=== PATIENT | female | born 1960 | race Two or more races ===

== ENCOUNTER → 2018-03-17 | Outpatient (CLI) | payer BC ==
[~2018-03-17] MED LIST: FER325T PO; MULTTAB61 PO
[2018-03-17 07:29] LABS: Urine Bacteria FEW /hpf (None Seen); Urine Blood Negative /uL (Negative); Urine Mucus FEW (None Seen); Urine Specific Gravity 1.021 (1.001-1.035); Urine WBC 6 /hpf (0 - 5)
[2018-03-17 07:31] LABS: Basophils # (auto) 0 uL; Basophils % (auto) 0.8 % (0.0-2.0); Eosinophils # (auto) 0.1 uL; Eosinophils % (auto) 2.4 % (0.0-7.0); Hematocrit 43.5 % (36.0-46.0); Hemoglobin 14.6 g/dL (12.2-16.2); Lymphocytes # (auto) 1.8 uL; Lymphocytes % (auto) 39.7 % (10.0-50.0); Mean Corpuscular Hemoglobin 28.7 pg (28.0-32.0); Mean Corpuscular Hgb Conc. 33.6 g/dL (32.0-36.0); Mean Corpuscular Volume 85.5 fL (80.0-100.0); Monocytes # (auto) 0.3 uL; Monocytes % (auto) 6.2 % (0.0-12.0); Neutrophils # (auto) 2.4 uL; Neutrophils % (auto) 50.9 % (37.0-80.0); Platelet Count (auto) 203 10^3/uL (140-450); Red Blood Cells 5.09 10^6/uL (4.0-5.20); Red Cell Distribution Width 13.4 % (11.8-14.3); White Blood Cell 4.6 10^3/uL (4.4-10.8)
[2018-03-17 08:26] LABS: Albumin 3.7 g/dL (3.4-5.0); BUN/Creatinine Ratio 20.6; Bilirubin, Total 0.4 mg/dL (0.2-1.0); Calcium 8.6 mg/dL (8.5-10.1); Potassium 3.8 mmol/L (3.5-5.1); Total Protein 7.5 g/dL (6.4-8.2)
== END | disposition home or self-care (01) ==
LOC: LAB 07:03
PROVIDERS: ATTEND Nurse Practitioner
DX: E78.5 Hyperlipidemia, unspecified (principal)
CPT/HCPCS: 36415; 80053; 80061; 81001; 82306; 83036; 84443; 85025

== ENCOUNTER 2024-04-20 13:03 | Emergency (ER) | payer BC ==
[~2024-04-20] VITALS: Ht 152.4 cm; Wt 99.0 kg
[~2024-04-20 13:03] MED LIST changes: +MULT-1018 PO; -MULTTAB61 PO
[2024-04-20] MEDS: IOHEXOL 350 MG/ML 100ML IJ ONE (13:31)
[2024-04-20 13:37] LABS: Basophils # (auto) 0 10 ^3/uL (0-0.2); Basophils % (auto) 0.6 % (0.0-2.0); Eosinophils # (auto) 0.1 10 ^3/uL (0-0.8); Eosinophils % (auto) 1.7 % (0.0-7.0); Hematocrit 44.8 % (36.0-46.0); Hemoglobin 15.5 g/dL (12.2-16.2); Lymphocytes % (auto) 40.9 % (10.0-50.0); Mean Corpuscular Hemoglobin 30.6 pg (28.0-32.0); Mean Corpuscular Hgb Conc. 34.6 g/dL (32.0-36.0); Mean Corpuscular Volume 88.2 fL (80.0-100.0); Monocytes # (auto) 0.6 10 ^3/uL (0-1.3); Neutrophils # (auto) 3.6 10 ^3/uL (1.6-8.6); Neutrophils % (auto) 48.8 % (37.0-80.0); Platelet Count (auto) 195 10^3/uL (140-450); Red Blood Cells 5.07 10^6/uL (4.0-5.20); Red Cell Distribution Width 13.7 % (11.8-14.3); White Blood Cell 7.3 10^3/uL (4.4-10.8)
[2024-04-20 13:48] LABS: INR 1.03 (0.9-1.15); Partial Thromboplastin Time 27.9 SEC (24.5-34.5); Prothrombin Time 10.9 sec (9.3-11.8)
[2024-04-20 14:17] LABS: Alanine Aminotransferase 39 U/L (7-40); Albumin 4.3 g/dL (3.2-4.8); Alkaline Phosphatase 124 U/L (46-116); Anion Gap 7 (5-15); Aspartate Aminotransferase 26 U/L (13-40); BUN/Creatinine Ratio 13.8 (10.0-20.0); Blood Urea Nitrogen 12 mg/dL (9-23); Calcium 9.5 mg/dL (8.7-10.4); Carbon Dioxide 24 mmol/L (20-30); Chloride 109 mmol/L (98-107); Glucose 102 mg/dL (74-106); Magnesium 2.4 mg/dL (1.6-2.6); Potassium 4.1 mmol/L (3.5-5.1); Sodium 140 mmol/L (136-145)
[2024-04-20 14:18] LABS: Bilirubin, Total 0.4 mg/dL (0.2-1.0); Total Protein 7.2 g/dL (5.7-8.2)
[2024-04-20] MEDS ORDERED: VALA1TAB PO (14:30)
[2024-04-20] MEDS ORDERED: DEX4T PO (14:30)
[2024-04-20] MEDS: DexAMETHasone SOD PHOS 10MG/1ML VIAL INJ IM ONE (14:40)
[2024-04-20 14:58] VITALS: BP 135/85; PULSE 70; RESP 16; TEMP 98.5; O2SAT 96
== END 2024-04-20 15:00 | disposition home or self-care (01) ==
LOC: ER 13:03
DX: G51.0 Bell's palsy (principal); R07.89 Other chest pain; Z79.899 Other long term (current) drug therapy
CPT/HCPCS: 36415; 70450; 70496; 80053; 83735; 83880; 84484; 85025; 85610; 85730; 93005; 96372; 99285; J1100; Q9967

== ENCOUNTER → 2024-05-31 | Outpatient (CLI) | payer BC ==
[~2024-05-31] MED LIST changes: +DEX4T PO; +VALA1TAB PO
[2024-05-31 06:55] LABS: Basophils # (auto) 0.1 10 ^3/uL (0-0.2); Basophils % (auto) 1.4 % (0.0-2.0); Eosinophils # (auto) 0.1 10 ^3/uL (0-0.8); Eosinophils % (auto) 1.8 % (0.0-7.0); Hematocrit 43.6 % (36.0-46.0); Lymphocytes # (auto) 2.4 10 ^3/uL (0.4-5.4); Lymphocytes % (auto) 38.4 % (10.0-50.0); Mean Corpuscular Hemoglobin 30.5 pg (28.0-32.0); Mean Corpuscular Hgb Conc. 34.5 g/dL (32.0-36.0); Mean Corpuscular Volume 88.3 fL (80.0-100.0); Monocytes # (auto) 0.4 10 ^3/uL (0-1.3); Monocytes % (auto) 6.7 % (0.0-12.0); Neutrophils # (auto) 3.3 10 ^3/uL (1.6-8.6); Neutrophils % (auto) 51.7 % (37.0-80.0); Nucleated Red Blood Cells % 0.1 %; Platelet Count (auto) 200 10^3/uL (140-450); Red Blood Cells 4.93 10^6/uL (4.0-5.20); Red Cell Distribution Width 14.5 % (11.8-14.3); White Blood Cell 6.3 10^3/uL (4.4-10.8)
[2024-05-31 06:58] LABS: Urine Bacteria FEW /hpf (None Seen); Urine Blood Negative /uL (Negative); Urine Clarity Clear (Clear); Urine Color Yellow (Yellow); Urine Protein, UAD Negative (Negative); Urine Specific Gravity 1.021 (1.001-1.035); Urine Urobilinogen Normal (Negative); Urine WBC 3 /hpf (0 - 5); Urine pH 6.5 (5.0-9.0)
[2024-05-31 07:26] LABS: Alanine Aminotransferase 37 U/L (7-40); Albumin 4.1 g/dL (3.2-4.8); Alkaline Phosphatase 114 U/L (46-116); Anion Gap 4 (5-15); Aspartate Aminotransferase 24 U/L (13-40); BUN/Creatinine Ratio 14.1 (10.0-20.0); Bilirubin, Total 0.7 mg/dL (0.2-1.0); Blood Urea Nitrogen 10 mg/dL (9-23); Calcium 9.6 mg/dL (8.7-10.4); Carbon Dioxide 28 mmol/L (20-31); Chloride 109 mmol/L (98-107); Glucose 108 mg/dL (74-106); Potassium 4.1 mmol/L (3.5-5.1); Sodium 141 mmol/L (136-145); Total Protein 6.8 g/dL (5.7-8.2)
[2024-05-31 07:51] LABS: Cholesterol 185 mg/dL (< 200); Triglycerides 169 mg/dL (< 150)
[2024-05-31 07:52] LABS: LDL Cholesterol 133 mg/dL (< 100)
[2024-05-31 07:53] LABS: HDL Cholesterol 44 mg/dL (40-59)
== END | disposition home or self-care (01) ==
LOC: LAB 06:12
DX: Z12.11 Encounter for screening for malignant neoplasm of colon (principal); I10 Essential (primary) hypertension; R73.9 Hyperglycemia, unspecified
CPT/HCPCS: 36415; 80053; 80061; 81001; 82306; 83036; 84439; 84443; 85025

== ENCOUNTER → 2024-06-23 | Outpatient (CLI) | payer BC | END | disposition home or self-care (01) | LOC: LAB 13:08 | PROVIDERS: ATTEND Student in an Organized Health Care Education/Training Program | DX: Z12.11 Encounter for screening for malignant neoplasm of colon (principal); I10 Essential (primary) hypertension; R73.9 Hyperglycemia, unspecified; E55.9 Vitamin D deficiency, unspecified | CPT/HCPCS: 82274 ==

== ENCOUNTER → 2024-07-12 | Outpatient (CLI) | payer BC ==
[2024-07-13 08:07] LABS: Complement C3 132 mg/dL (82-167); Rheumatoid Arthritis Factor 39.5 IU/mL (<14.0); Thyroid Peroxidase (TPO) Ab <9 IU/mL (0-34)
[2024-07-13 15:07] LABS: Anti-Nuclear Antibody Direct Negative (Negative); Anti-dsDNA Antibody <1 IU/mL (0-9); Antiscleroderma-70 Antibody <0.2 AI (0.0-0.9); RNP Antibody <0.2 AI (0.0-0.9); Sjogren's Anti-SS-A Antibody <0.2 AI (0.0-0.9); Sjogren's Anti-SS-B Antibody <0.2 AI (0.0-0.9); Smith Antibody <0.2 AI (0.0-0.9)
== END | disposition home or self-care (01) ==
LOC: LAB 12:29
PROVIDERS: ATTEND Student in an Organized Health Care Education/Training Program
DX: M25.50 Pain in unspecified joint (principal)
CPT/HCPCS: 36415; 84550; 86160; 86225; 86235; 86376; 86431

== ENCOUNTER → 2025-01-04 | Outpatient (CLI) | payer BC ==
[2025-01-04 11:35] LABS: Alanine Aminotransferase 37 U/L (7-40); Albumin 4.2 g/dL (3.2-4.8); Anion Gap 7 (5-15); Aspartate Aminotransferase 26 U/L (13-40); BUN/Creatinine Ratio 19.2 (10.0-20.0); Bilirubin, Total 0.3 mg/dL (0.2-1.0); Blood Urea Nitrogen 15 mg/dL (9-23); CRP High Sensitivity 0.66 mg/dL (<1.0); Calcium 9.8 mg/dL (8.7-10.4); Carbon Dioxide 28 mmol/L (20-31); Chloride 106 mmol/L (98-107); Glucose 93 mg/dL (74-106); Potassium 4.2 mmol/L (3.5-5.1); Sodium 141 mmol/L (136-145); Total Protein 6.9 g/dL (5.7-8.2)
[2025-01-04 11:36] LABS: Basophils # (auto) 0.1 10 ^3/uL (0-0.2); Basophils % (auto) 0.9 % (0.0-2.0); Eosinophils # (auto) 0.2 10 ^3/uL (0-0.8); Eosinophils % (auto) 1.7 % (0.0-7.0); Hematocrit 43.9 % (36.0-46.0); Lymphocytes # (auto) 2.9 10 ^3/uL (0.4-5.4); Lymphocytes % (auto) 32.1 % (10.0-50.0); Mean Corpuscular Hemoglobin 29.7 pg (28.0-32.0); Mean Corpuscular Hgb Conc. 34.2 g/dL (32.0-36.0); Mean Corpuscular Volume 86.9 fL (80.0-100.0); Monocytes # (auto) 0.6 10 ^3/uL (0-1.3); Monocytes % (auto) 7.2 % (0.0-12.0); Neutrophils # (auto) 5.2 10 ^3/uL (1.6-8.6); Neutrophils % (auto) 58.1 % (37.0-80.0); Nucleated Red Blood Cells % 0.4 %; Platelet Count (auto) 165 10^3/uL (140-450); Red Blood Cells 5.06 10^6/uL (4.0-5.20); Red Cell Distribution Width 13.6 % (11.8-14.3); White Blood Cell 8.9 10^3/uL (4.4-10.8)
[2025-01-04 11:37] LABS: Alkaline Phosphatase 141 U/L (46-116)
[2025-01-04 12:18] LABS: Erythrocyte Sedimentation Rate 9 mm/hr (0-20)
[2025-01-05 10:54] LABS: Hepatitis B Core Total AB Negative (Negative)
[2025-01-05 12:15] LABS: Hepatitis A Total Antibody Positive (Negative); Hepatitis B Surface Antibody Negative (Negative); Hepatitis B Surface Antigen Negative (Negative); Hepatitis C Antibody Negative (Negative)
== END | disposition home or self-care (01) ==
LOC: LAB 10:10
PROVIDERS: ATTEND Internal Medicine Rheumatology
DX: L40.50 Arthropathic psoriasis, unspecified (principal); R76.0 Raised antibody titer
CPT/HCPCS: 36415; 80053; 85025; 85652; 86141; 86704; 86706; 86708; 86803; 87340

== ENCOUNTER 2025-01-28 06:46 | Outpatient (CLI) | payer BC ==
[2025-01-28 07:07] LABS: Basophils # (auto) 0.1 10 ^3/uL (0-0.2); Basophils % (auto) 0.9 % (0.0-2.0); Eosinophils # (auto) 0.2 10 ^3/uL (0-0.8); Eosinophils % (auto) 2.8 % (0.0-7.0); Hematocrit 42.3 % (36.0-46.0); Hemoglobin 14.9 g/dL (12.2-16.2); Lymphocytes # (auto) 2.6 10 ^3/uL (0.4-5.4); Lymphocytes % (auto) 39.1 % (10.0-50.0); Mean Corpuscular Hgb Conc. 35.1 g/dL (32.0-36.0); Mean Corpuscular Volume 85.4 fL (80.0-100.0); Monocytes # (auto) 0.4 10 ^3/uL (0-1.3); Monocytes % (auto) 6.5 % (0.0-12.0); Neutrophils # (auto) 3.4 10 ^3/uL (1.6-8.6); Neutrophils % (auto) 50.7 % (37.0-80.0); Nucleated Red Blood Cells % 0.1 %; Platelet Count (auto) 183 10^3/uL (140-450); Red Blood Cells 4.96 10^6/uL (4.0-5.20); Red Cell Distribution Width 14.1 % (11.8-14.3); White Blood Cell 6.6 10^3/uL (4.4-10.8)
[2025-01-28 08:14] LABS: Alanine Aminotransferase 36 U/L (7-40); Anion Gap 9 (5-15); BUN/Creatinine Ratio 15.9 (10.0-20.0); Blood Urea Nitrogen 11 mg/dL (9-23); CRP High Sensitivity 0.75 mg/dL (<1.0); Calcium 9.9 mg/dL (8.7-10.4); Carbon Dioxide 26 mmol/L (20-31); Glucose 92 mg/dL (74-106); Potassium 4.1 mmol/L (3.5-5.1); Sodium 144 mmol/L (136-145); Total Protein 6.8 g/dL (5.7-8.2); Triglycerides 139 mg/dL (< 150)
[2025-01-28 08:15] LABS: Albumin 4.1 g/dL (3.2-4.8); Aspartate Aminotransferase 27 U/L (<34); Bilirubin, Total 0.6 mg/dL (0.2-1.0); Cholesterol 186 mg/dL (< 200); HDL Cholesterol 42 mg/dL (40-59)
[2025-01-28 08:18] LABS: Erythrocyte Sedimentation Rate 8 mm/hr (0-20)
[2025-01-28 08:19] LABS: Alkaline Phosphatase 120 U/L (46-116); Chloride 109 mmol/L (98-107); LDL Cholesterol 141 mg/dL (< 100)
== END 2025-01-28 17:00 | disposition home or self-care (01) ==
LOC: LAB 06:46
PROVIDERS: ATTEND Student in an Organized Health Care Education/Training Program
DX: I10 Essential (primary) hypertension (principal); E55.9 Vitamin D deficiency, unspecified; R73.9 Hyperglycemia, unspecified; L40.50 Arthropathic psoriasis, unspecified; Z79.899 Other long term (current) drug therapy
CPT/HCPCS: 36415; 80053; 80061; 82306; 83036; 84443; 85025; 85652; 86141

== ENCOUNTER → 2025-03-10 | Outpatient (CLI) | payer BC ==
[2025-03-10 15:02] LABS: Urine Protein, UAD Negative (Negative)
== END | disposition home or self-care (01) ==
LOC: LAB 14:52
PROVIDERS: ATTEND Student in an Organized Health Care Education/Training Program
DX: I10 Essential (primary) hypertension (principal); E55.9 Vitamin D deficiency, unspecified; R73.9 Hyperglycemia, unspecified
CPT/HCPCS: 81001